=== PATIENT | female | born 1950 | race Caucasian/White ===

== ENCOUNTER 2016-11-04 08:00 | Inpatient (IN) | payer MEDICARE, OTHER ==
[~2016-11-04] VITALS: Ht 165.1 cm; Wt 152.9 kg
--- NOTE | ~2016-11-04 | OR ---
ADMIT: 11/18/2016 RM/LOC: [address] [place] [address] MR#: [id number] [address] INNA CORRALES [address] [place] [address] Operative/Delivery Room Report SEX: F AGE: 66 : 1950 SURGERY DATE: 11/18/2016 SURGEON: Girish Ryder MD PREOPERATIVE DIAGNOSIS: Right-sided breast cancer. POSTOPERATIVE DIAGNOSIS: Right-sided breast cancer. PROCEDURE PERFORMED: 1. Injection of Lymphazurin for sentinel lymph node identification. 2. Right-sided sentinel lymph node biopsy. 3. Right-sided mastectomy with a Hilliard pattern, essentially breast reduction- type pattern. MEDICAL IMAGING SPECIALIST: FERNANDO Jones. ANESTHESIA: General endotracheal. ESTIMATED BLOOD LOSS: Approximately 150 mL. DESCRIPTION OF PROCEDURE: After appropriate informed consent was obtained, the patient was brought to the operating room. I had marked out the lines of incision, essentially a breast reduction-type pattern on the patient's right side. Once in the operating room, general endotracheal anesthesia was induced. I injected 3 mL of Lymphazurin into the right breast. The right and left breasts were then prepped and draped in sterile fashion. I created incisions along the markings that I created for the breast reduction-type pattern. The skin flaps kept approximately 1 cm thick. The breast was reflected off the chest wall using cautery. With the breast removed, it was oriented to single stitch superiorly, double stitch laterally. I then performed the sentinel lymph node biopsy through my mastectomy incision, ADMIT: 11/18/2016 RM/LOC: [address] [place] [address] MR#: [id number] [address] INNA CORRALES [address] [place] [address] Operative/Delivery Room Report SEX: F AGE: 66 : 1950 identified a hot lymph node in a packet of fat that was removed. First count was 1155, second count was 1352. Background count was still too high, so I took another node which was a count of 837 and this left me with a background count of 9. With this accomplished, two 15-Ukrainian round Saul drains were placed underneath the skin flaps. The cavity was then copiously irrigated out with warm water, and then the skin flaps temporarily reapproximated with christina and then closed with 3-0 Monocryl Plus in the dermal layer, and running 4-0 Monocryl in the subcuticular layer. Steri-Strips, sterile dressings were applied. The drain was sewn in place, placed to bulb suction. Zhao Burch assisted in this entire procedure. His help was necessary for retraction during this difficult dissection. Girish Ryder MD/ [place] JOB #: [id number] CC: Girish Ryder, Attending Physician Steve Shaw, Family Physician
--- NOTE | ~2016-11-04 | DS ---
ADMIT: 11/18/2016 RM/LOC: 6[address] [facility] MR#: [id number] [address] ANTONI INNA Yonathan [address] [place] [address] Discharge Summary SEX: F AGE: 66 : 1950 ADMISSION DATE: 11/18/2016 DISCHARGE DATE: 11/20/2016 ADMITTING DIAGNOSIS: Right-sided breast cancer. DISMISSAL DIAGNOSES: 1. Infiltrating ductal carcinoma, grade 3, of the right breast. Surgical margins free of malignancy and the tumor measures 1.3 cm in the greatest dimension. 2. Previous knee scope. 3. Previous nasal polyp removal. 4. Previous ablation. 5. Coronary artery disease. 6. Hypertension. 7. GERD (gastroesophageal reflux disease). 8. Hyperlipidemia. 9. Type 2 diabetes. 10.Previous tonsillectomy. 11.Previous breast surgery. 12.Previous appendectomy. 13.Previous lap cholecystectomy. 14.Previous rotator cuff repair. PROCEDURES: 1. Injection of Lymphazurin for sentinel lymph node identification. 2. Right-sided sentinel lymph node biopsy. 3. Right-sided mastectomy with a Hilliard pattern, essentially breast reduction type pattern. 4. Evacuation of right mastectomy hematoma and over-sewing of bleeding vessel. HOSPITAL COURSE: The patient was initially an observation patient with routine med surg orders. After surgery, the patient transferred to the floor without any complications. She was given Lortab for pain control and was started on a regular diet. Initially after surgery, the patient began ambulating and noticed increased swelling at the surgical site with increase of bloody drainage in her drains. As a result, Dr. Ryder took her back to the OR for concerns of developing hematoma. At this time, he did notice the hematoma and a bleeding vessel to which he over sewed. After hemostasis was achieved, the patient then transferred back to the floor. She was typed and crossed for 2 units of PRBCs and was given one. The patient recovered much better from this point on. She tolerated a regular diet, and her pain was controlled. She did have some loose stools but no concern for any C diff. Her vitals remained stable and her lab work began to normalize. She was able to discharge home on 11/20/2016. DISCHARGE INSTRUCTIONS: 1. Follow up with Home Health Care today at 2 p.m. 2. Follow up with Dr. Ryder on December 02. ADMIT: 11/18/2016 RM/LOC: [address]26 [facility] MR#: [id number] [address] INNA CORRALES [address] [place] [address] Discharge Summary SEX: F AGE: 66 : 1950 DISCHARGE MEDICATION LIST: 1. Metoprolol b.i.d. 2. Ropinirole 0.5 mg at bedtime. 3. Zofran 4 mg 1 tab q.4 hours p.r.n. 4. Januvia 100 mg at bedtime. 5. Naproxen 500 mg q.6-8 hours p.r.n. 6. Detrol 4 mg at bedtime p.r.n. 7. Potassium 20 mEq at bedtime. 8. Multivitamin daily. 9. Vitamin D3 10,000 units at bedtime. 10.Natural anti-inflammatory supplement 2 tablets at bedtime. 11.Nystatin oral suspension 1 teaspoon q.4 hours p.r.n. 12.Hydrocodone/acetaminophen 5/325 one to two tabs q.4 hours p.r.n. pain. FERNANDO Jones / Girish Ryder MD / [place] JOB #: [id number] CC: Girish Ryder MD, Attending Physician Steve Shaw MD, Family Physician
--- NOTE | 2016-11-18 18:58 | NUR ---
1605-Patient assisted to BR. Steady on feet, color pink. Tolerated well. 1610-Pt pushes call light-found on toilet, clammy, sweating, weak, and says she is going to pass out. Patient remains on toilet, but does lose conscienceness for a very short period of time. Large amt of new bright red bleeding noted across entire right chest dressing. 1614-Patient able to pivot & transfer to w/c with help of three staff nurses. 1615-Rapid response called See flow sheet. Large amt of drainage in HARISH-when HARISH emptied, drain immediatly fills back up. Patient, pale, ashen, weak, alert, & appropriate. See I&O for drainage. Ice bags and pressure applied to upper right chest where increased bleeding, and firmness noted to area. IV of NS hung for rapid bolus. 1630-patient's color has returned to pale pink. Skin warm. Educated on situation. Lab present to draw blood. See HARISH drainage amts pale pink, not as clammy. Sweating stopped. Reports "I am feeling better now"
--- NOTE | 2016-11-20 09:33 | OR ---
ADMIT: 11/18/2016 RM/LOC: [address]26 [facility] MR#: [id number] [id number] [facility] [address] [place] [id number] DEYVI CORRALESTH Yonathan [address] [place] [address] Operative/Delivery Room Report SEX: F AGE: 66 : 1950 SURGERY DATE: 11/18/2016 SURGEON: Girish Ryder MD PREOPERATIVE DIAGNOSIS: Right mastectomy hematoma status post mastectomy today. POSTOPERATIVE DIAGNOSIS: Right mastectomy hematoma with active bleeding vessel. PROCEDURE PERFORMED: Evacuation right mastectomy hematoma and over-sewing bleeding vessel. ANESTHESIA: General endotracheal. ESTIMATED BLOOD LOSS: Approximately 500 mL of blood in the mastectomy site. DESCRIPTION OF PROCEDURE: After appropriate informed consent was obtained, the patient was brought urgently to the operating room. General endotracheal anesthesia was induced. The patient's right mastectomy site was prepped and draped in a sterile fashion. The inferior aspect of the incision was opened with 10 blade as well as with [place] scissors. The hematoma was evacuated, and after getting the clot out, I was able to identify a bleeding vessel in the right axilla. I just oversewed this with a 3-0 Vicryl [id number] suture. Essentially once that was accomplished that was the source of our bleeding, I then used a pulse lavage and 3 L of saline to irrigate out the mastectomy site. There were some small oozing sites that were controlled with cautery. Once I was satisfied with hemostasis, 2 new 15-Armenian round Saul drains were placed, and the skin flap was then reapproximated first temporarily with skin christina and then with 3-0 Monocryl Plus in the dermal layer and running 4-0 Monocryl in the subcuticular layer. Steri-Strips and sterile dressings were applied. The drain was sewn in place and placed to bulb suction. The patient tolerated the procedure well and was taken to recovery in stable condition. Girish Ryder MD/ [place] JOB #: [id number] CC: Girish Ryder, Attending Physician Steve Shaw, Family Physician Tawny Pineda MD
[2016-11-20] MEDS ORDERED: ZOFRAN4 MG PO (15:48)
[2016-11-20] MEDS ORDERED: REQUIP DPS0.5 MG PO (15:48)
[2016-11-20] MEDS ORDERED: LOPRESSOR DPS50 MG PO (15:48)
[2016-11-20] MEDS ORDERED: JANUVIA100 MG PO (15:49)
[2016-11-20] MEDS ORDERED: NAPROSYN DPS500 MG PO (15:49)
[2016-11-20] MEDS ORDERED: VITAMIN D35000 UNI1 PO (15:50)
[2016-11-20] MEDS ORDERED: DETROL LA DPS4 MG PO (15:50)
[2016-11-20] MEDS ORDERED: KLOR-CON M2020 ME1 PO (15:50)
[2016-11-20] MEDS ORDERED: DAILY MULTIPLE1 EAC1 PO (15:50)
[2016-11-20] MEDS ORDERED: [UNRECOGNIZED DRUG - OTHER] PO (15:51)
[2016-11-20] MEDS ORDERED: NYSTATIN100000 UNI PO (15:52)
[2016-11-20] MEDS ORDERED: NORCO 5-325 TA1 EACH PO (15:52)
== END 2016-11-20 11:35 | disposition home health service (06) | DRG 580 ==
LOC: RAD.S 08:00 → EDSTATUS 08:00 → WOR 11-18 06:54 → 6PED 11-18 12:32
PROVIDERS: ADMIT Surgery
PROC: 0HTT0ZZ Resection of Right Breast, Open Approach (ICD-10-PCS; principal; 2016-11-18)
PROC: 07B50ZX Excision of Right Axillary Lymphatic, Open Approach, Diagnostic (ICD-10-PCS; principal; 2016-11-18)
PROC: 0JC60ZZ Extirpation of Matter from Chest Subcutaneous Tissue and Fascia, Open Approach (ICD-10-PCS; 2016-11-18)
PROC: 0W380ZZ Control Bleeding in Chest Wall, Open Approach (ICD-10-PCS; 2016-11-18)
DX: C50.911 Malignant neoplasm of unspecified site of right female breast (principal); L76.32 Postprocedural hematoma of skin and subcutaneous tissue following other procedure; E11.9 Type 2 diabetes mellitus without complications; I25.10 Atherosclerotic heart disease of native coronary artery without angina pectoris; R11.10 Vomiting, unspecified; R19.7 Diarrhea, unspecified; K21.9 Gastro-esophageal reflux disease without esophagitis

== ENCOUNTER → 2016-11-13 | Outpatient (CLI) | payer MEDICARE, OTHER | END | disposition home or self-care (01) | LOC: PTH.S 10-30 09:14 | DX: Z01.818 Encounter for other preprocedural examination (principal); E66.01 Morbid (severe) obesity due to excess calories ==